=== PATIENT | female | born 1990 | race Asian ===

== ENCOUNTER 2017-07-20 12:32 | Emergency (ER) | payer MEDICAID ==
[~2017-07-20] VITALS: Ht 162.6 cm; Wt 51.0 kg
[2017-07-20] MEDS ORDERED: ONDANSETRON HCL 4MG/2ML VIAL IV STA (14:08)
[2017-07-20] MEDS ORDERED: SODIUM CHLORIDE 0.9% 1,000 ML IV ONE (14:08)
[2017-07-20] MEDS ORDERED: FAMOTIDINE 20MG/2ML VIAL IV STA (14:08)
[2017-07-20] MEDS ORDERED: MORPHINE SULFATE 4 MG/ML CPJ (NOT FOR IM USE) IV STA (14:08)
[2017-07-20 14:27] LABS: HEMATOCRIT. 41.1 % (36.0-48.0); HEMOGLOBIN. 12.8 g/dL (12.0-16.0); MEAN CORPUSCULAR HEMOGLOBIN 19.5 pg (28.0-32.0); MEAN CORPUSCULAR VOLUME 62.3 fL (81.0-99.0); RED CELL DISTRIBUTION WIDTH 16.4 % (11.6-14.6)
[2017-07-20 14:29] LABS: CHLORIDE 109 mEq/L (98-107)
[2017-07-20 14:30] LABS: CLARITY URINE CLEAR (CLEAR); COLOR URINE YELLOW (YELLOW); KETONES URINE 1+ (NEGATIVE); LEUKOCYTE ESTERASE URINE NEGATIVE (NEGATIVE); NITRITE URINE NEGATIVE (NEGATIVE); OCCULT BLOOD URINE NEGATIVE (NEGATIVE); PROTEIN URINE NEGATIVE (NEGATIVE); SPECIFIC GRAVITY URINE 1.027 (1.005-1.030); UROBILINOGEN URINE 0.2 E.U./dL (0.2-1.0)
[2017-07-20 14:36] LABS: HCG SCREEN NEGATIVE
[2017-07-20 15:36] LABS: MEAN PLATELET VOLUME 9.4 fl (7.4-10.4); PLATELET 250 x1000/uL (130-400)
[2017-07-20 15:38] LABS: PLATELET ESTIMATE NORMAL
[2017-07-20 16:59] VITALS: BP 102/55
== END 2017-07-20 17:01 | disposition home or self-care (01) ==
LOC: ER 13:41
DX: T62.91XA Toxic effect of unspecified noxious substance eaten as food, accidental (unintentional), initial encounter (principal); Y92.89 Other specified places as the place of occurrence of the external cause
CPT/HCPCS: 36415; 80053; 81003; 83690; 84703; 85025; 96361; 96374; 96375; 99285; J2405; J3490; J7030; Z7610